=== PATIENT | female | born 1970 | race Hispanic/Latino ===

== ENCOUNTER 2018-06-12 19:28 | Observation (INO) | payer BC ==
[2018-06-12 20:00] VITALS: BMI 30.2
--- NOTE | 2018-06-12 20:35 | ED PDOC ---
Arrival/HPI - General Historian: Patient, Family () - History of Present Illness Narrative History of Present Illness (Text): 06/12/18 20:25 Patient is a 47 year old female who denies any past medical history presents to the emergency room suspected seizure. Patient states she was sitting at the dinner table with her daughter when she felt like she was going to pass out. She then felt a warm gaming take over her body and she passed out. Patient is accompanied by her who states their daughter reported that patient tensed up and fell to the floor. There was no shaking noted, only that the patient became stiff, with her head and neck extended with her eyes rolling backwards. Patient was unconscious for approximately 15 seconds with a period of confusion upon waking. Patient was awoken to screams of her daughter, which sounded distant. Patient states she was confused when she woke up and did not know how she ended up on the floor. This has never happened to her before. Patient denies any family history of seizures. Prior to seizure, patient felt well without any complaints. She is currently feeling tired but otherwise is without pain. Denies fevers, chills, nausea, vomiting, headache, photophobia, numbness, tingling, slurred speech, focal weakness, tongue biting, bladder or bowel incontinence. PMD: Dr. Riaz Rodriguez Time/Duration: Prior to Arrival, 1/2 hour Symptom Onset: Sudden Symptom Course: Resolved Activities at Onset: Eating <Jesse Hallman - Last Filed: 06/13/18 01:33> <Ramesh Kruse - Last Filed: 06/13/18 04:15> - General Chief Complaint: Weakness/Neurological Deficit Time Seen by Provider: 06/12/18 19:37 Past Medical History - Provider Review Nursing Documentation Reviewed: Yes - Psychiatric Hx Substance Use: No - Surgical History Hx Appendectomy: Yes Hx Cholecystectomy: Yes <Jesse Hallman - Last Filed: 06/13/18 01:33> Family/Social History - Physician Review Nursing Documentation Reviewed: Yes Family/Social History: CVA/TIA (grandfather - mid 60's), Blood Clots (mother 2/2 post-surgical blood clot) Smoking Status: Never Smoked Hx Alcohol Use: No Hx Substance Use: No <Jesse Hallman - Last Filed: 06/13/18 01:33> Allergies/Home Meds <VijiJesse - Last Filed: 06/13/18 01:33> <Ramesh Kruse - Last Filed: 06/13/18 04:15> Allergies/Adverse Reactions: Allergies No Known Allergies Allergy (Verified 06/12/18 20:22) Review of Systems - Physician Review All systems were reviewed & negative as marked: Yes - Review of Systems Constitutional: Fatigue. absent: Fevers Eyes: Normal. absent: Vision Changes, Photophobia ENT: Normal. absent: Sore Throat, Rhinorrhea Respiratory: Normal. absent: SOB, Wheezing Cardiovascular: Syncope. absent: Chest Pain, Palpitations, CRAIG Gastrointestinal: Normal. absent: Abdominal Pain, Constipation, Diarrhea, Nausea, Vomiting Genitourinary Female: Normal, Other (no incontinence) Musculoskeletal: Normal. absent: Back Pain, Neck Pain Skin: Normal Neurological: Seizure. absent: Headache, Dizziness, Focal Weakness, Speech Changes Endocrine: Normal. absent: Diaphoresis Hemo/Lymphatic: Normal. absent: Adenopathy Psychiatric: Normal. absent: Anxiety <Jesse Hallman - Last Filed: 06/13/18 01:33> Physical Exam Vital Signs Reviewed: Yes Vital Signs Temp Pulse Resp BP Pulse Ox 06/12/18 19:59 98 F 75 18 125/80 98 Temperature: Afebrile Blood Pressure: Normal Pulse: Regular Respiratory Rate: Normal Appearance: Positive for: Well-Appearing, Non-Toxic, Comfortable Pain Distress: None Mental Status: Positive for: Alert and Oriented X 3 - Systems Exam Head: Present: Atraumatic, Normocephalic Pupils: Present: PERRL. No: Sluggish, Non-Reactive, Pinpoint Extroacular Muscles: Present: EOMI. No: Gaze Palsy Conjunctiva: Present: Normal Mouth: Present: Moist Mucous Membranes, Normal Tounge (no bite garrett) Pharnyx: Present: Normal. No: ERYTHEMA, EXUDATE, TONSILS ENLARGED Nose (External): Present: Atraumatic Nose (Internal): Present: No Active Bleeding, Moist Neck: Present: Normal Range of Motion. No: Meningeal Signs, MIDLINE TENDERNESS, Paraspinal Tenderness Respiratory/Chest: Present: Clear to Auscultation, Good Air Exchange. No: Respiratory Distress, Accessory Muscle Use, Wheezes, Rales, Rhonchi Cardiovascular: Present: Regular Rate and Rhythm, Normal S1, S2, Peripheal Pulses Present. No: Murmurs Abdomen: No: Tenderness, Distention, Peritoneal Signs, Rebound, Guarding, McBurney's Point Tender, Rovsing's Sign Present Back: Present: Normal Inspection. No: Midline Tenderness, Paraspinal Tenderness Upper Extremity: Present: Normal Inspection, NORMAL PULSES, Other (strength 5/5 b/l). No: Cyanosis, Edema, Swelling, Erythema Lower Extremity: Present: Normal Inspection, NORMAL PULSES, Other (strength 5/5 b/l). No: Edema, CALF TENDERNESS, Tenderness, Swelling Neurological: Present: GCS=15, CN II-XII Intact, Speech Normal, Motor Func Grossly Intact, Normal Sensory Function, Normal Cerebellar Funct, Other (- babinski b/l) Skin: Present: Warm, Dry, Normal Color. No: Rashes Lymphatic: No: Cervical Adenopathy Psychiatric: Present: Alert, Oriented x 3, Normal Insight, Normal Concentration, Normal Affect, Normal Mood <Jesse Hallman - Last Filed: 06/13/18 01:33> Vital Signs Temp Pulse Resp BP Pulse Ox 06/12/18 19:59 98 F 75 18 125/80 98 <Ramesh Kruse - Last Filed: 06/13/18 04:15> Medical Decision Making ED Course and Treatment: 06/12/18 20:39 Patient is 47 year old female who denies any past medical history is presenting to the emergency room with a suspected new-onset seizure. Neuro exam is unremarkable. No tongue biting or bladder/bowel incontinence. Labs, EKG, CXR and Head CT w/o Will re-assess 06/12/18 22:47 Patient is resting comfortably in bed. Her mental status feels much more clear now but she does have a mild headache. Tylenol given for pain. Awaiting CT reports. 06/12/18 22:55 Discussed results of head CT with patient. Positive only for sinusitis. Call placed to Dr. Rodriguez for admission. 06/12/18 23:00 Case discussed in detail with Dr. Rodriguez. He has accepted patient onto his service for inpatient admission to telemetry. Dr. Rodriguez has requested Dr. Parr be placed on consult for Neurology. Order placed. Re-evaluation Time: 22:47 - Lab Interpretations I have reviewed the lab results: Yes - RAD Interpretation Radiology Orders: 06/12/18 20:22 HEAD W/O CONTRAST [CT] Stat 06/12/18 20:24 CXR [CHEST PORTABLE] [RAD] Stat Quality Assurance Specialist: Radiologist - EKG Interpretation EKG Interpretation (Text): 06/12/18 20:42 NSR @71bpm, normal axis, no acute ST segment elevations or depressions. Interpreted by ED Physician: Yes Type: 12 lead EKG <Jesse Hallman - Last Filed: 06/13/18 01:33> ED Course and Treatment: Impression: Pt seen and evaluated with medical insurance clerk. Aware and agree with HPI, clinical findings, plan, and management. Pt, with no significant past medical history, presented s/p suspected seizure Plan: -- CT Head w/o contrast -- EKG -- Chest X-ray -- Labs, troponin -- UA -- Reassess and disposition 06/12/18 22:50 CT Head shows: BRAIN No acute intraparenchymal hemorrhage. No mass lesion. No CT evidence for acute territorial infarct. No midline shift or extra-axial collections. VENTRICLES: No hydrocephalus. ORBITS: The orbits are unremarkable. SINUSES AND MASTOIDS: Bilateral ethmoid, maxillary and sphenoid sinusitis. The mastoid air cells are clear. BONES: No fracture. IMPRESSION: Sinusitis. No acute intracranial abnormality. Electronically signed on Jun 12, 2018 10:47:11 PM EDT by: Toby Jones M.D., LEN Certified By [facility] Fellowship Trained MRI and CT Specialist - RAD Interpretation Radiology Orders: 06/12/18 20:22 HEAD W/O CONTRAST [CT] Stat 06/12/18 20:24 CXR [CHEST PORTABLE] [RAD] Stat <Ramesh Kruse - Last Filed: 06/13/18 04:15> - PA / PACKING SUPERVISOR / Resident Statement / has reviewed & agrees with the documentation as recorded. WILIAN has examined the patient and agrees with the treatment plan. <Ramesh Kruse - Last Filed: 06/13/18 04:15> Disposition/Present on Arrival - Present on Arrival Any Indicators Present on Arrival: No History of DVT/PE: No History of Uncontrolled Diabetes: No Urinary Catheter: No History of Decub. Ulcer: No History Surgical Site Infection Following: None - Disposition Have Diagnosis and Disposition been Completed?: Yes Disposition Time: 23:01 Patient Plan: Admission, Telemetry <Jesse Hallman - Last Filed: 06/13/18 01:33> <Ramesh Kruse - Last Filed: 06/13/18 04:15> - Disposition Diagnosis: New onset seizure Disposition: HOSPITALIZED Patient Problems: Current Active Problems Problem Status Onset New onset seizure Acute Condition: GUARDED
[2018-06-12 21:35] LABS: BASO # 0.02 K/mm3 (0.0-2.0); BASO % 0.2 % (0.0-3.0); EOS # 0.6 (0.0-0.7); EOS % 5.5 % (1.5-5.0); GRAN # 7.19 (1.4-6.5); GRAN % 67.4 % (50.0-68.0); LYMPH # 2.1 (1.2-3.4); LYMPH % 19.7 % (22.0-35.0); MEAN CELL VOLUME 87.7 fl (80.0-105.0); MEAN CORPUSCULAR HEMOGLOBIN 29.1 pg (25.0-35.0); MEAN CORPUSCULAR HGB CONC 33.1 g/dl (31.0-37.0); MEAN PLATELET VOLUME 9.4 fl (7.0-11.0); MONO # 0.8 (0.1-0.6); MONO % 7.2 % (1.0-6.0); RBC 4.13 10^6/uL (3.5-6.1); RED CELL DISTRIBUTION WIDTH 12.5 % (11.5-14.5); WHITE BLOOD COUNT 10.7 10^3/ul (4.5-11.0)
[2018-06-12 21:36] LABS: PH,URINE 5.5 (4.7-8.0); URINE BILIRUBIN NEGATIVE (NEGATIVE); URINE BLOOD TRACE-INTACT (NEGATIVE); URINE GLUCOSE (UA) NEGATIVE (NEGATIVE); URINE LEUKOCYTE ESTERASE NEGATIVE Leu/uL (NEGATIVE); URINE PROTEIN NEGATIVE mg/dL (<30 mg/dL); URINE UROBILINOGEN 0.2 E.U./dL (<1 E.U./dL)
[2018-06-12 21:41] LABS: ALB/GLOB RATIO 1.3 (1.1-1.8); ALT/SGPT 22 U/L (7-56); AST/SGOT 25 U/L (14-36); BLOOD UREA NITROGEN 21 mg/dL (7-21); CALCIUM 9.2 mg/dL (8.4-10.5); GFR NON-AFRICAN AMERICAN 59
[2018-06-12 21:42] LABS: URINE APPEARANCE CLEAR (CLEAR); URINE COLOR YELLOW (YELLOW)
[2018-06-12 21:47] LABS: URINE AMORPHOUS SEDIMENT FEW; URINE BACTERIA MANY (NEG); URINE WBC 0 - 2 /hpf (0-6)
[2018-06-12 21:52] LABS: TROPONIN I < 0.01 ng/mL
[2018-06-12] MEDS ORDERED: Sodium Chloride 0.9% 1,000 ML IV STA (23:44)
[2018-06-13 00:26] VITALS: O2SAT 95
[2018-06-13 00:52] VITALS: RESP 18
[2018-06-13 06:34] VITALS: BP 99/58; TEMP 97.8
--- NOTE | 2018-06-13 09:23 | RAD ---
Date of service: 06/12/2018 PROCEDURE: CHEST RADIOGRAPH, 1 VIEW HISTORY: preadmission baseline COMPARISON: None available. FINDINGS: LUNGS: Clear. PLEURA: No pneumothorax or pleural fluid seen. CARDIOVASCULAR: Normal. OSSEOUS STRUCTURES: No significant abnormalities. VISUALIZED UPPER ABDOMEN: Normal. OTHER FINDINGS: None. IMPRESSION: No active disease.
--- NOTE | 2018-06-13 09:30 | CT ---
Date of service: 06/12/2018 PROCEDURE: CT HEAD WITHOUT CONTRAST. HISTORY: new onset seizure COMPARISON: None available. TECHNIQUE: Axial computed tomography images were obtained through the head/brain without intravenous contrast. Radiation dose: Total exam DLP = 860 mGy-cm. This CT exam was performed using one or more of the following dose reduction techniques: Automated exposure control, adjustment of the mA and/or kV according to patient size, and/or use of iterative reconstruction technique. FINDINGS: HEMORRHAGE: No intracranial hemorrhage. BRAIN: No mass effect or edema. No atrophy or chronic microvascular ischemic changes. VENTRICLES: Unremarkable. No hydrocephalus. CALVARIUM: Unremarkable. PARANASAL SINUSES: Unremarkable as visualized. No significant inflammatory changes. MASTOID AIR CELLS: Unremarkable as visualized. No inflammatory changes. OTHER FINDINGS: The report concurs with the preliminary [facility] report IMPRESSION: No acute intracranial findings
--- NOTE | 2018-06-13 11:06 | CARD ---
APPROVED REPORT Date of service: 06/12/2018 EKG Measurement Heart [id number] <Conclusion> Normal sinus rhythm Normal ECG
[2018-06-13 12:40] VITALS: PULSE 61
--- NOTE | 2018-06-13 14:30 | CON ---
DATE: 06/13/2018 HISTORY OF PRESENT ILLNESS: This is a 47-year-old woman with no significant past medical history, who came to the emergency room with suspected seizures. The patient was sitting at the dinner table with daughter and when she felt like she was going to pass out. She then felt a warm gaming taking over her body and she passed out for a few seconds and it was noted that she was and her neck was extended and eyes rolled back. The patient was unconscious for approximately 50 seconds and period of confusion upon wakening. No focal weakness of extremities. No paresthesias. No changes in sensation, vision, taste or smell. No history of meningitis, febrile seizures or trauma to the brain in the past. CT head showed no acute intracranial abnormalities currently. She does get average of max 6 hours of sleep per day. Has a poor sleep hygiene. Otherwise, currently neuro exam is nonfocal. PAST MEDICAL HISTORY: As above. SOCIAL HISTORY: No illicit drug use, smoking or EtOH abuse. ALLERGIES: NO KNOWN DRUG ALLERGIES. MEDICATIONS: Reviewed by nurses' reconciliation sheet. FAMILY HISTORY: Noncontributory. REVIEW OF SYSTEMS: Fourteen-point review of systems is negative except as per the HPI. LABORATORY DATA: No new labs done today. Her labs on 06/12/2018, her CMP was unremarkable. PHYSICAL EXAMINATION: VITAL SIGNS: Temperature 97.8, pulse rate of 72, blood pressure 99/58, respiratory rate of 18, oxygen saturation 95% by room air. GENERAL: The patient is sitting up in bed, in no acute distress. HEENT: Atraumatic, normocephalic. PERRLA. Extraocular muscles intact. NECK: Supple. No JVD, no adenopathy noted. LUNGS: Clear to auscultation. No adventitious sounds. HEART: S1, S2. Normal rate and rhythm. No murmurs, rubs or gallops. ABDOMEN: Soft, nontender and nondistended. Bowel sounds are present. EXTREMITIES: No clubbing. No cyanosis. Peripheral pulses 2+ felt bilaterally. NEUROLOGIC: The patient is alert and oriented to person, place, month and year. Speech is fluent without any errors. Cranial nerves II through XII intact. Motor exam: Moves all extremities equally. Toes are downgoing bilaterally. Sensory exam: Light touch, pinprick, proprioception and vibration are intact. DTRs are 2+ throughout. Toes are downgoing bilaterally. Coordination: [id number] intact. No dysmetria noted. Gait is deferred for now. IMPRESSION: Syncopal convulsion versus questionable new-onset seizure. At this time, recommend, 1. Sleep hygiene. 2. Frequent hydration throughout the day. 3. No antiepileptic drugs for now. 4. We will recommend to follow up for an ambulatory EEG to record her any /seizure-like activity in my office. We will follow up as an outpatient. She is clinically stable. Eldon Parr MD
== END 2018-06-13 12:58 | disposition home or self-care (01) ==
LOC: ED 19:28 → ERH 23:11 → INTOOBSV 23:11 → ERH 23:30 → 2RSO 06-13 00:20
PROVIDERS: ADMIT Internal Medicine; ATTEND Internal Medicine
DX: R55 Syncope and collapse (principal); Z72.821 Inadequate sleep hygiene
CPT/HCPCS: 70450; 71045; 80053; 81001; 83735; 84100; 84484; 85025; 93005; 99285; G0378; J7030